=== PATIENT | male | born 1965 | race Caucasian/White ===

== ENCOUNTER 2018-03-31 07:32 | Emergency (ER) | payer BC ==
--- NOTE | 2018-03-31 08:00 | EDM.PDOC ---
ED HPI GENERAL MEDICAL PROBLEM - General Chief Complaint: Genitourinary Problem Stated Complaint: POSSIBLE UTI Time Seen by Provider: 03/31/18 07:41 - History of Present Illness INITIAL COMMENTS - FREE TEXT/NARRATIVE: HISTORY AND PHYSICAL: History of present illness: The patient is a 52-year-old male who lives in [place] and is here visiting his son and presents with complaints of discomfort with urination and frequency of urination that started 2 days ago and improved somewhat with over-the- counter Azo. He has not had hematuria and has no prior history such as kidney stones bladder issues prostate issues. He said that he also had diarrhea yesterday but that is improved and he has not had any diarrhea in the last 12 hours. He had one episode of nausea and vomiting but is not nauseated right now. He has no abdominal pain no flank pain no back pain no fevers chills chest pain or shortness of breath. The patient says when he feels the urge to urinate he goes and only voids small amounts and has difficulty initiating a stream. He has no STD risks that he admits to. He doesn't feel like he has retained urine and he thinks that the symptoms have improved with [id number] medication. He has never had symptoms like this before. He admits that he does not necessarily hydrate as much as he should but he has tried to increase that with the symptoms. Currently in the ED he is not complaining of any nausea or abdominal pain and has not had the diarrhea as stated above. He also says that this morning he woke up and part of his hand was kind of numb and tingly. On the left hand digits 4 and 5 are tingly and that has never happened before but he has no proximal numbness or tingling no neck pain and no weakness in the hand or the arm. He is not sure if he slept on the hand but he does say that he in the past she has done repetitive behavior with his hands Review of systems: As per history of present illness and below otherwise all systems reviewed and negative. Past medical history: As per history of present illness and as reviewed below otherwise noncontributory. Surgical history: As per history of present illness and as reviewed below otherwise noncontributory. Social history: No reported history of drug or alcohol abuse. Family history: As per history of present illness and as reviewed below otherwise noncontributory. Physical exam: General: Well-developed well-nourished man who is nontoxic and vital signs are noted by me. He seems slightly anxious in the room but is cooperative. HEENT: Atraumatic, normocephalic, negative for conjunctival pallor or scleral icterus, mucous membranes moist, throat clear, neck supple, nontender, trachea midline. Lungs: Clear to auscultation, breath sounds equal bilaterally, chest nontender. Heart: S1S2, regular rhythm slightly tachycardic rate on my evaluation but no overt murmurs Abdomen: Soft, nondistended, nontender. Negative for masses or hepatosplenomegaly. Negative for costovertebral tenderness. Pelvis: Stable nontender. Genitourinary: Deferred. Rectal: Deferred. Extremities: Atraumatic, negative for cords or calf pain. Neurovascular unremarkable. Full range of motion without defects or deficits Neuro: Awake, alert, oriented. Cranial nerves II through XII unremarkable. Cerebellum unremarkable. Motor and sensory unremarkable throughout. Exam nonfocal. Diagnostics: UA with reflex micro-and reflex culture, bladder scan 53cc on scan Therapeutics: [] I discussed with the patient that the tingling and numbness in his 2 fingers of his left hand is likely not something that we will be able to workup. It may be the start of early carpal tunnel or neurapraxia. I've advised him to follow-up with his provider at home in [place] for recurrence or persistence of the symptoms. I also stressed the importance of follow-up with his provider at home or one of our clinic providers to evaluate his prostate with respect to this infection. Impression: UTI Definitive disposition and diagnosis as appropriate pending reevaluation and review of above. - Related Data Allergies Allergy/AdvReac Type Severity Reaction Status Date / Time No Known Allergies Allergy Verified 03/31/18 07:43 Home Meds: Home Meds . [No Known Home Meds] 03/31/18 [History] Past Medical History HEENT History: Reports: None Cardiovascular History: Reports: None Respiratory History: Reports: None Gastrointestinal History: Reports: None Genitourinary History: Reports: None Musculoskeletal History: Reports: None Neurological History: Reports: None Psychiatric History: Reports: None Endocrine/Metabolic History: Reports: None Hematologic History: Reports: None Immunologic History: Reports: None Oncologic (Cancer) History: Reports: None Dermatologic History: Reports: None - Infectious Disease History Infectious Disease History: Reports: Chicken Pox, Other (See Below) Other Infectious Disease History: childhood - Past Surgical History Head Surgeries/Procedures: Reports: None HEENT Surgical History: Reports: None Cardiovascular Surgical History: Reports: None Respiratory Surgical History: Reports: None GI Surgical History: Reports: None Male Surgical History: Reports: None Endocrine Surgical History: Reports: None Neurological Surgical History: Reports: None Musculoskeletal Surgical History: Reports: None Oncologic Surgical History: Reports: None Dermatological Surgical History: Reports: None Social & Family History - Family History Family Medical History: Noncontributory - Tobacco Use Smoking Status *Q: Never Smoker Second Hand Smoke Exposure: No - Caffeine Use Caffeine Use: Reports: Soda - Recreational Drug Use Recreational Drug Use: No ED ROS GENERAL - Review of Systems Review Of Systems: ROS reveals no pertinent complaints other than HPI. ED EXAM, GENERAL - Physical Exam Exam: See Below (See dictation) Course - Vital Signs Last Recorded V/S: Last Vital Signs Temp 35.6 C 03/31/18 07:41 Pulse 121 H 03/31/18 07:41 Resp 18 03/31/18 07:41 BP 134/98 H 03/31/18 07:41 Pulse Ox 96 03/31/18 07:41 - Orders/Labs/Meds Orders: Active Orders 24 hr Category Date Time Status Bladder Scan [RC] ASDIRECTED Care 03/31/18 07:56 Active CULTURE URINE [RM] Stat Lab 03/31/18 07:45 Received Labs: Laboratory Tests 03/31/18 Range/Units 07:45 Urine Color DARK YELLOW Urine Appearance CLOUDY Urine pH 5.0 (5.0-8.0) Ur Specific [place] >= 1.030 (1.001-1.035) Urine Protein >=300 H (NEGATIVE) mg/dL Urine Glucose (UA) 100 H (NEGATIVE) mg/dL Urine Ketones 15 H (NEGATIVE) mg/dL Urine Occult Blood MODERATE H (NEGATIVE) Urine Nitrite POSITIVE H (NEGATIVE) Urine Bilirubin MODERATE H (NEGATIVE) Urine Ictotest POSITIVE Urine Urobilinogen >=8.0 H (<2.0) EU/dL Ur Leukocyte Esterase MODERATE H (NEGATIVE) Urine RBC 3-5 (0-2/HPF) Urine WBC 30-40 (0-5/HPF) Ur Epithelial Cells FEW (NONE-FEW) Ur Renal Epithelial Cell MODERATE Urine Bacteria 1+ H (NEGATIVE) Urine Mucus LIGHT (NONE-MOD) Departure - Departure Time of Disposition: 08:20 Disposition: Home, Self-Care 01 Condition: Good Clinical Impression: UTI, Urinary tract infectious disease - Discharge Information Referrals: PCP,None [Primary Care Provider] - Forms: ED Department Discharge Additional Instructions: The following information is given to patients seen in the emergency department who are being discharged to home. This information is to outline your options for follow-up care. We provide all patients seen in our emergency department with a follow-up referral. The need for follow-up, as well as the timing and circumstances, are variable depending upon the specifics of your emergency department visit. If you don't have a primary care physician on staff, we will provide you with a referral. We always advise you to contact your personal physician following an emergency department visit to inform them of the circumstance of the visit and for follow-up with them and/or the need for any referrals to a consulting specialist. The emergency department will also refer you to a specialist when appropriate. This referral assures that you have the opportunity for followup care with a specialist. All of these measure are taken in an effort to provide you with optimal care, which includes your followup. Under all circumstances we always encourage you to contact your private physician who remains a resource for coordinating your care. When calling for followup care, please make the office aware that this follow-up is from your recent emergency room visit. If for any reason you are refused follow-up, please contact the [facility] emergency department at and ask to speak to the emergency department charge nurse. [facility] Primary care- Internal Medicine and Family [address] [id number] Please try to push hydration and avoid caffeinated products as we discussed. You may continue the [id number] Azo as you choose to help with discomfort and take antibiotics as directed until they're finished. Please connect with your provider back home in [place] or one of our clinic providers at the conclusion of your antibiotic therapy for reevaluation and further care. A culture has been performed on your urine and if there is a need for change of antibiotics he will be contacted by one of our nurses in the next 2-3 days. Return to ER as needed and as discussed. - My Orders Last 24 Hours: My Active Orders 03/31/18 07:45 CULTURE URINE [RM] Stat 03/31/18 07:56 Bladder Scan [RC] ASDIRECTED - Assessment/Plan Last 24 Hours: My Active Orders 03/31/18 07:45 CULTURE URINE [RM] Stat 03/31/18 07:56 Bladder Scan [RC] ASDIRECTED
== END 2018-03-31 08:38 | disposition home or self-care (01) ==
LOC: MW.ED 07:32
DX: N39.0 Urinary tract infection, site not specified (principal)
CPT/HCPCS: 81001; 87086; 87088; 87186; 99283